=== PATIENT | female | born 1960 | race Caucasian/White ===

== ENCOUNTER 2019-02-03 10:16 | Day surgery (SDC) | payer BC ==
[~2019-02-03 10:16] MED LIST: Lactated Ringers 1,000 ML IV SCH
[2019-02-03] MEDS ORDERED: Propofol 200 MG/20 ML SDV ONE ×2 (11:18→12:21)
[2019-02-03] MEDS ORDERED: fentaNYL 100 MCG/2 ML SDV ONE (11:18)
[2019-02-03] MEDS ORDERED: Ondansetron 4 MG/2 ML SDV ONE (11:19)
--- NOTE | 2019-02-03 16:31 | OR ---
PRE-OPERATIVE DIAGNOSES: Screening colonoscopy. Patient's last colonoscopy was in 01/2014. There is a positive family history of colon polyps. POST-OPERATIVE DIAGNOSES: 1. 2-mm cecal polyp. 2. Mildly tortuous colon but otherwise normal. PROCEDURE: Colonoscopy with polypectomy x1 using cold forceps. SURGEON: Aramis Benson M.D. ANESTHESIA: Monitored anesthesia care. BOWEL PREP: Good. Jackie is a 58-year-old female, who was brought to the endoscopy suite after discussing risks and benefits of the procedure. Informed consent was obtained for conscious sedation and colonoscopy with or without biopsy and/or polypectomy. We also discussed possibility of missed lesions. Pre-procedure exam was unremarkable. IV, oxygen, and monitors were placed. The patient was placed in the left lateral decubitus position. Sedation was administered and a digital rectal exam was performed which was unremarkable. Colonoscope was passed into the rectum and slowly advanced all the way to the cecum. Cecum was viewed and photographed. There was a tiny 2-mm polyp within the cecum. This was removed using cold forceps. The colonoscope was slowly withdrawn and the mucosa was closed observed in a direct circumferential manner. The ascending colon was unremarkable. The transverse colon was unremarkable. The descending colon was unremarkable. The sigmoid colon was unremarkable. Retroflexion was performed and rectal mucosa was unremarkable. Scope was removed. The patient tolerated the procedure well. The patient was monitored until that baseline status. Discharge instructions were reviewed and the patient was discharged in good condition. COMPLICATIONS: None. TOTAL TIME: 23 minutes. ESTIMATED BLOOD LOSS: Less than 1 mL. RECOMMENDATIONS/FOLLOW-UP: We will await results of path report to determine ideal followup interval. I would like to kindly thank Asuncion Wellington for this referral. DMB: 02/03/2019 12:56:39 MODL: 02/03/2019 16:21:41 /[id number]
== END 2019-02-03 13:17 | disposition home or self-care (01) ==
LOC: VM.SDS 10:16
PROVIDERS: ATTEND Family Medicine
DX: Z12.11 Encounter for screening for malignant neoplasm of colon (principal); K63.5 Polyp of colon; Q43.8 Other specified congenital malformations of intestine; F32.9 Major depressive disorder, single episode, unspecified; E55.9 Vitamin D deficiency, unspecified; E66.9 Obesity, unspecified; Z83.71 Family history of colonic polyps; Z79.899 Other long term (current) drug therapy; Z79.82 Long term (current) use of aspirin; Z88.8 Allergy status to other drugs, medicaments and biological substances; Z88.2 Allergy status to sulfonamides; Z68.30 Body mass index [BMI] 30.0-30.9, adult
CPT/HCPCS: J2405; J2704; J3010; J7120